=== PATIENT | male | born 1990 | race Two or more races ===

== ENCOUNTER 2022-11-16 09:59 | Emergency (ER) | payer OTHER ==
[~2022-11-16] VITALS: Ht 167.6 cm; Wt 72.6 kg
--- NOTE | 2022-11-16 10:16 | NUR ---
BIB [facility] W/ C/O MID LOWER BACK PAIN SINCE AUGUST 2021. PT UNDER CUSTODY FROM [facility] [employer] UNIT 21A57. TO ER BED 15.
--- NOTE | 2022-11-16 10:18 | NUR ---
DR MOORE AT BEDSIDE FOR EVAL
--- NOTE | 2022-11-16 11:03 | NUR ---
PT TAKEN TO RADIOLOGY
--- NOTE | 2022-11-16 11:20 | NUR ---
PT RETURNED FROM RADIOLOGY
--- NOTE | 2022-11-16 12:32 | NUR ---
Keli gill in [facility] - 11/16/22 at 1232 by CHELSY Patient discharged to home in stable condition. Written and verbal after care instructions given. Patient verbalizes understanding of instruction.
--- NOTE | 2022-11-16 12:32 | NUR ---
Patient discharged to family lawyer with ok to book medical clearance in stable condition. Written and verbal after care instructions given. imaging results provided. Patient and law enforcer verbalizes understanding of instruction.
[2022-11-16 12:35] VITALS: BP 111/61
== END 2022-11-16 12:36 ==
LOC: ER 10:17
DX: G89.29 Other chronic pain (principal); M54.9 Dorsalgia, unspecified; Z87.81 Personal history of (healed) traumatic fracture
CPT/HCPCS: 72070-TC; 72110-TC